=== PATIENT | male | born 1985 | race Two or more races ===

== ENCOUNTER 2019-01-23 00:52 | Emergency (ER) | payer MEDICAID ==
[~2019-01-23] VITALS: Ht 175.3 cm; Wt 88.5 kg
[2019-01-23 01:07] VITALS: BP 128/67; Ht 175.3 cm; Wt 88.5 kg
== END 2019-01-23 01:45 | disposition left against medical advice (07) ==
LOC: ED 00:52
DX: Z53.21 Procedure and treatment not carried out due to patient leaving prior to being seen by health care provider (principal)